=== PATIENT | male | born 1965 | race Caucasian/White ===

== ENCOUNTER 2017-01-17 14:28 | Emergency (ER) | payer SELFPAY ==
[~2017-01-17] VITALS: Ht 177.8 cm; Wt 114.2 kg
[2017-01-17] MEDS ORDERED: ULTRAM50 M1 PO (15:08)
[2017-01-17 16:20] VITALS: BP 134/91
== END 2017-01-17 16:10 | disposition home or self-care (01) | DRG 605 ==
LOC: ED 14:28
DX: S20.211A Contusion of right front wall of thorax, initial encounter (principal); I25.10 Atherosclerotic heart disease of native coronary artery without angina pectoris; W01.198A Fall on same level from slipping, tripping and stumbling with subsequent striking against other object, initial encounter; Y93.K9 Activity, other involving animal care; Y92.821 Forest as the place of occurrence of the external cause; Z95.5 Presence of coronary angioplasty implant and graft